=== PATIENT | female | born 1965 | race Asian ===

== ENCOUNTER 2017-03-06 21:29 | Emergency (ER) | payer OTHER ==
[~2017-03-06] VITALS: Ht 160 cm; Wt 57.0 kg
[2017-03-06 21:31] VITALS: Ht 160 cm; Wt 57.0 kg
--- NOTE | 2017-03-06 22:27 | ERA ---
ER Documentation Chief Complaint Date/Time DATE: 03/06/17 TIME: 22:27 Chief Complaint right flank pain x 3 days HPI The patient is a 51-year-old female, presenting to the ER because of right flank pain for the last 2 days. She was seen by a physician who treated her with Cipro for kidney infection. However she did not feel better, complains of chills, denies fever, neck pain, chest pain, vomiting, dysuria, complains of constipation. She does not smoke, drinks socially Past medical history: None Past surgical history: Hysterectomy, appendectomy, cholecystectomy ROS All systems reviewed and are negative except as per history of present illness. Medications Home Meds Active Scripts Hydrocodone/Acetaminophen ([place] 5-325 Tablet) 1 Each Tablet, 1 TAB PO Q6H Y for PAIN, #7 TAB Prov:HODAN PATTON MD 03/07/17 Ibuprofen* (Motrin*) 600 Mg Tab, 600 MG PO Q6H Y for PAIN, #20 TAB Prov:HODAN PATTON MD 03/07/17 Reported Medications Calcium Citrate* (Citracal*) 950 Mg Tab, PO DAILY, TAB 03/06/17 Ibuprofen* (Ibuprofen*) 200 Mg Capsule, 400 MG PO QID Y for PAIN, CAP 03/06/17 Multivitamin (MULTI-VITAMIN DAILY) 1 Each Tablet, 1 TAB PO DAILY, TAB 03/06/17 Vitamin E Acid Succinate (Vitamin E) 100 Unit Tablet, 100 UNIT PO, TAB 03/06/17 Ciprofloxacin Hcl* (Ciprofloxacin Hcl*) 500 Mg Tablet, 500 MG PO BID, #14 TAB 03/06/17 Allergies Allergies: Coded Allergies: No Known Allergy (Unverified , 03/06/17) Physical Exam Vitals Vital Signs Date Time Temp Pulse Resp B/P Pulse Ox O2 Delivery O2 Flow Rate FiO2 03/06/17 23:39 78 18 140/88 97 Room Air 03/06/17 21:31 99.8 90 20 148/90 97 Physical Exam Const: No acute distress. Head: Atraumatic. Eyes: Normal Conjunctiva. ENT: Normal External Ears, Nose and Mouth. Neck: Full range of motion. No meningismus. Resp: Clear to auscultation bilaterally. Cardio: Regular rate and rhythm. Abd: Soft, non distended, normal bowel sounds, moderate right flank tenderness, no right upper quadrant, right lower quadrant, epigastric, CVA tenderness Skin: No petechiae or rashes. Back: No midline or flank tenderness. Ext: No cyanosis, or edema. Neur: Awake and alert. No focal deficit Psych: Normal Mood and Affect. Result Diagram: 03/06/17222203/06/173 Results 24 hrs Laboratory Tests Test 03/06/17 22:23 03/06/17 22:50 White Blood Count 7.110^3/ul Red Blood Count 4.5810^6/ul Hemoglobin 14.2g/dl Hematocrit 43.4% Mean Corpuscular Volume 94.8fl Mean Corpuscular Hemoglobin 31.0pg Mean Corpuscular Hemoglobin Concent 32.7g/dl Red Cell Distribution Width 11.5% Platelet Count 03892^3/UL Mean Platelet Volume 9.5fl Neutrophils % 61.5% Lymphocytes % 25.3% Monocytes % 10.0% Eosinophils % 2.3% Basophils % 0.6% Nucleated Red Blood Cells % 0.0/100WBC Neutrophils # 4.410^3/ul Lymphocytes # 1.810^3/ul Monocytes # 0.710^3/ul Eosinophils # 0.210^3/ul Basophils # 0.010^3/ul Nucleated Red Blood Cells # 0.010^3/ul Sodium Level 144mmol/L Potassium Level 3.7mmol/L Chloride Level 103mmol/L Carbon Dioxide Level 30mmol/L Anion Gap 15 Blood Urea Nitrogen 11mg/dl Creatinine 0.57mg/dl Glucose Level 96mg/dl Calcium Level 9.9mg/dl Total Bilirubin 0.1mg/dl Direct Bilirubin 0.00mg/dl Indirect Bilirubin 0.1mg/dl Aspartate Amino Transf (AST/SGOT) 36IU/L Alanine Aminotransferase (ALT/SGPT) 49IU/L Alkaline Phosphatase 72IU/L Total Protein 8.4g/dl Albumin 4.9g/dl Globulin 3.50g/dl Albumin/Globulin Ratio 1.40 Lipase 165U/L Bedside Urine pH (LAB) 5.5 Bedside Urine Protein (LAB) Negative Bedside Urine Glucose (UA) Negative Bedside Urine Ketones (LAB) Negative Bedside Urine Blood Negative Bedside Urine Nitrite (LAB) Negative Bedside Urine Leukocyte Esterase (L Trace Current Medications Medications (Trade) Dose Ordered Sig/Polo Route PRN Reason Start Time Stop Time Status Last Admin Dose Admin Ondansetron HCl (Zofran Inj) 4 mg ONCE ONCE IV 03/06/17 22:55 03/06/17 22:56 DC 03/06/17 23:05 Morphine Sulfate (morphine) 2 mg ONCE ONCE IV 03/06/17 23:00 03/06/17 23:01 DC 03/06/17 23:07 Ketorolac Tromethamine (Toradol) 30 mg ONCE ONCE IV 03/07/17 00:28 03/07/17 00:29 DC Procedures/[place] [id number] Radiology Main Line: [phone] DIAGNOSTIC IMAGING REPORT Patient: ROBERTO PALENCIA : 1965 Age: 51 Sex: F MR #: [id number] DOS: 03/06/17 2250 Ordering MD: HODAN PATTON MD Location: E/R Room/Bed: PROCEDURE: CT ABDOMEN/PELVIS WITHOUT CONTRAST CLINICAL INDICATION: 51-year-old female with abdominal pain. TECHNIQUE: The study was performed utilizing a [employer] VCT 64-slice CT scanner. Direct axial sections were obtained through the abdomen and pelvis without the use of intravenous contrast material. Sagittal and coronal reformations were obtained. One or more of the following dose reduction techniques were utilized: automated exposure control, adjustment of the mA and/ or kV according to patient's size or use of iterative reconstruction technique. The images were reviewed on a PACS workstation. CTD/vol = 7.6 mGy; Total Exam DLP = 406.4 mGy-cm. COMPARISON: None. FINDINGS: There is trace bibasilar subsegmental atelectasis. There is no evidence for significant pleural effusion. The liver has a normal size and contour without focal areas of abnormal density. No intrahepatic nor extrahepatic biliary ductal dilatation is seen. Surgical clips are present within the gallbladder fossa from prior cholecystectomy The pancreas is without areas of abnormal attenuation. The spleen is identified and has a normal size without abnormal density. The adrenal glands are unremarkable. The kidneys are without abnormal density. No hydroureteronephrosis nor nephroureterolithiasis is evident. The urinary bladder contains urine. There is mild fluid within the distal small bowel without transition point. There is mild retained stool throughout the colon without gross bowel obstruction. The appendix is not visualized however there is no periappendiceal inflammatory changes. There are a couple of small diverticula within the ascending colon without surrounding inflammatory changes. The uterus is not visualized consistent with prior hysterectomy. There is no significant free fluid. A surgical clip is seen within the pelvic region. The aortoiliac vessels are without aneurysmal dilatation. The osseous structures are intact. IMPRESSION: 1. Status post cholecystectomy. 2. Mild retained stool without obstruction. 3. Minimal ascending colon diverticulosis. 4. Status post hysterectomy. .Oseas Gray MD, Date Time Electronically viewed and signed by .Oseas Gray MD, MD on 03/07/2017 00:07 .M/ CC: HODAN PATTON MD MEDICAL MAKING DECISION: The patient is a 51-year-old female, presenting with acute right flank pain of unclear etiology. She was treated with morphine 2 mg IV, Toradol 30 mg IV for pain and Zofran 4 mg IV for nausea with good response. The differential diagnoses considered include but are not limited to cystitis, pancreatitis, hepatitis, gastritis, peptic ulcer disease, gastric ulcer, diverticulitis, cholangitis, choledocholithiasis, partial small bowel obstruction. Departure Diagnosis: Primary Impression: Flank pain Condition: Good Comments She was discharged with Motrin and [place] I discussed the findings with the patient. I advised the patient to follow-up with the primary physician in about 1-2 days, sooner if needed and return if any concern. The patient's blood pressure was elevated (>120/80) but appears stable without evidence of hypertension emergency or urgency. The patient was counseled about the risks of hypertension and urged to pursue outpatient monitoring and therapy within a week with their primary care physician. HODAN PATTON MD Mar 06, 2017 22:27
[2017-03-06 22:48] LABS: URINE BLOOD (Dip) POC Negative (NEGATIVE)
[2017-03-06] MEDS ORDERED: ONDANSETRON 4 MG INJ IV ONE (22:55)
[2017-03-06] MEDS ORDERED: morphine 2 MG INJ IV ONE (23:00)
[2017-03-06] MEDS ORDERED: VITA100T7 PO (23:18)
[2017-03-06] MEDS ORDERED: CIPR500T4 PO (23:18)
[2017-03-06] MEDS ORDERED: MULT-762 PO (23:18)
[2017-03-06] MEDS ORDERED: IBUP200C PO (23:18)
[2017-03-06] MEDS ORDERED: CITRACAL PO (23:19)
[2017-03-06 23:55] LABS: ADD SCAN DIFF NO
[2017-03-06 23:57] LABS: BASOPHILS % 0.6 % (0.0-2.0); EOSINOPHILS # 0.2 10^3/ul (0.0-0.5); EOSINOPHILS % 2.3 % (0.0-7.0); HEMATOCRIT 43.4 % (37.0-47.0); HEMOGLOBIN 14.2 g/dl (12.0-16.0); LYMPHOCYTES # 1.8 10^3/ul (0.8-2.9); LYMPHOCYTES % 25.3 % (15.0-51.0); MEAN CORPUSCULAR HGB CONC 32.7 g/dl (32.0-37.0); MEAN CORPUSCULAR VOLUME 94.8 fl (82.0-101.0); MEAN PLATELET VOLUME 9.5 fl (7.4-10.4); MONOCYTE # 0.7 10^3/ul (0.3-0.9); NEUTROPHIL # 4.4 10^3/ul (1.6-7.5); NEUTROPHILS % 61.5 % (39.0-77.0); PLATELET COUNT 312 10^3/UL (140-415); RED BLOOD COUNT 4.58 10^6/ul (4.20-5.40); RED CELL DISTRIBUTION WIDTH 11.5 % (11.5-14.5); WHITE BLOOD COUNT 7.1 10^3/ul (4.8-10.8)
[2017-03-07 00:03] LABS: ALBUMIN 4.9 g/dl (3.3-4.9); ALBUMIN/GLOBULIN RATIO 1.4; BILIRUBIN,INDIRECT 0.1 mg/dl (0-1.1); BILIRUBIN,TOTAL 0.1 mg/dl (0.2-1.3); CALCIUM 9.9 mg/dl (8.4-10.2); CREATININE 0.57 mg/dl (0.44-1.00); POTASSIUM 3.7 mmol/L (3.5-5.1); TOTAL PROTEIN 8.4 g/dl (6.1-8.1)
--- NOTE | 2017-03-07 00:08 | RADRPT ---
PROCEDURE: CT ABDOMEN/PELVIS WITHOUT CONTRAST CLINICAL INDICATION: 51-year-old female with abdominal pain. TECHNIQUE: The study was performed utilizing a [employer] VCT 64-slice CT scanner. Direct axia l sections were obtained through the abdomen and pelvis without the use of intravenous contrast mate rial. Sagittal and coronal reformations were obtained. One or more of the following dose reduction t echniques were utilized: automated exposure control, adjustment of the mA and/or kV according to pat ient's size or use of iterative reconstruction technique. The images were reviewed on a PACS workst [employer]. CTD/vol = 7.6 mGy; Total Exam DLP = 406.4 mGy-cm. COMPARISON: None. FINDINGS: There is trace bibasilar subsegmental atelectasis. There is no evidence for significant pleural eff usion. The liver has a normal size and contour without focal areas of abnormal density. No intrahep atic nor extrahepatic biliary ductal dilatation is seen. Surgical clips are present within the gallb ladder fossa from prior cholecystectomy The pancreas is without areas of abnormal attenuation. The spleen is identified and has a normal size without abnormal density. The adrenal glands are unremark able. The kidneys are without abnormal density. No hydroureteronephrosis nor nephroureterolithiasis is evident. The urinary bladder contains urine. There is mild fluid within the distal small bowel wi thout transition point. There is mild retained stool throughout the colon without gross bowel obstr uction. The appendix is not visualized however there is no periappendiceal inflammatory changes. T here are a couple of small diverticula within the ascending colon without surrounding inflammatory changes. The uterus is not visualized consistent with prior hysterectomy. There is no significant f ree fluid. A surgical clip is seen within the pelvic region. The aortoiliac vessels are without ane urysmal dilatation. The osseous structures are intact. IMPRESSION: 1. Status post cholecystectomy. 2. Mild retained stool without obstruction. 3. Minimal ascending colon diverticulosis. 4. Status post hysterectomy. .Oseas Gray MD, MD Date Time Electronically viewed and signed by .Oseas Gray MD, MD on 03/07/2017 00:07 .M/
[2017-03-07] MEDS ORDERED: KETOROLAC 30 MG INJ IV ONE (00:28)
[2017-03-07] MEDS ORDERED: HYDR-906 PO (00:42)
[2017-03-07] MEDS ORDERED: IBUP-1542 PO (00:42)
[2017-03-07 00:53] VITALS: BP 137/77; PULSE 78; RESP 19; TEMP 99.1
== END 2017-03-07 00:53 | disposition home or self-care (01) ==
LOC: E/R 21:29
DX: R10.9 Unspecified abdominal pain (principal); R11.0 Nausea
CPT/HCPCS: 36415; 74176; 80053; 81003; 83690; 85025; 96374; 96375; 99285; J1885; J2270; J2405